=== PATIENT | male | born 1945 | race African-American/Black ===

== ENCOUNTER → 2018-12-11 | Day surgery (SDC) | payer MEDICARE, OTHER ==
[~2018-12-11] MED LIST: ALBUTEROL SULFATE 2.5 MG/3 ML NEBU. NEB PRN; ATROPINE 0.5 MG/5 ML DISP.SYRIN. IV PRN; ATROPINE SULFATE 1 MG VIAL ONE; BUSP10TA PO; DEXAMETHASONE SOD PHOS 10 MG/ML VIAL ONE; FLUO20CA8 PO; GLYCOPYRROLATE 1 MG/5 ML VIAL. ONE; IV RINGERS SOLUTION,LACTATED 1,000 ML IV SCH; LIDOCAINE 2% PF Vial for OR 5 ML VIAL. ONE; LOSA100T14 PO; NALOXONE 0.4 MG/ML VIAL. IV PRN; NEOSTIGMINE 10 MG/10 ML VIAL. ONE; OMEP20CA9 PO; ONDANSETRON PF 4 MG/2 ML VIAL. IV PRN; ONDANSETRON PF 4 MG/2 ML VIAL. ONE; PRAZ1CAP2 PO; PREG150C PO; PROCHLORPERAZINE 10 MG/2 ML VIAL. IV PRN; PROPOFOL 10,000 MCG/ML (20ML) VIAL IV ONE; PROPOFOL 20 ML IV ONE; ROCURONIUM 50 MG/5 ML VIAL. ONE; SUCCINYLCHOLINE 200 MG/10 ML VIAL. ONE; TAMS0.4C2 PO; ceFAZolin 2GM PREMIX 2 GM/50 ML BAG IV ONE; diphenhydrAMINE 50 MG/ML VIAL IV PRN; oxyCODONE/APAP 5/325 1 TAB TABLET PO PRN
--- NOTE | 2018-12-11 11:40 | PDOC4 ---
BRIEF OPERATIVE NOTE Brief Operative Note: Date: Dec 11, 2018 Pre-Op Diagnosis: Caries AMY Tobacco use HTN Post-Op Diagnosis: Caries AMY Tobacco use HTN Procedure: extraction of # 2, 4,6,7,8,9,10,11,12,15,17,18,29,31 Surgeon: jillian Global Ceo: del Anesthesiologist: hiram Blood Loss: 20 Urine Output: no [place] Specimans: teeth disposed of in OR Findings: see dictation Complications: none Operative Note: teeth extracted and 4 quad alveoloplasty KATIE DUNLAP DMD Dec 11, 2018 11:40
--- NOTE | 2018-12-11 12:13 | OP ---
DATE OF SURGERY: 12/11/2018 OPERATING SERVICE: payroll director. ATTENDING PHYSICIAN: Jonathan Dunlap DMD, MD. OPERATION PERFORMED: 1. Nonrestorable dentition, selected teeth #2, 4, 6, 7, 8, 9, 10, 11, 12, 15, 17, 18, 29 and 31. 2. Alveoloplasty would be required on the quadrants upper right, upper left, lower right, lower left. PREOPERATIVE DIAGNOSES: Caries, obstructive sleep apnea, prostate cancer with radiation treatment, tobacco use. POSTOPERATIVE DIAGNOSES: Caries, obstructive sleep apnea, prostate cancer with radiation treatment, tobacco use. BRIEF HISTORY: The patient is a 73-year-old male referred to our clinic for management of nonrestorable dentition, selected extractions considering his morbid conditions and obesity. Our plan was to remove these teeth in the OR setting at the surgery center for safety. The patient is affable with our plan. Permit was obtained for surgery. DRAINS PLACED: None. SPECIMEN SENT: None. BLOOD LOSS: Approximately 20 mL. COMPLICATIONS: None noted at the time of surgery. DESCRIPTION OF PROCEDURE: After the history and physical was updated in the preoperative holding area, the patient was transported by the Anesthesia Service to the operating suite, placed in the supine position. General anesthesia was induced. The patient was intubated with an oral NANETTE intubation without complication. The tube was secured in midline. After this, timeout was performed. The patient was positioned with pads in the appropriate pressure points. A moistened throat pack was placed and was confirmed. The local anesthesia in the form of 2% lidocaine with 1:100,000 epinephrine was administered approximately 8.5 mL. An additional 8.5 mL of 0.5% Marcaine with 1:200,000 epinephrine were administered into the proposed surgical areas. An additional at the culmination of the procedure, an additional 3.2 mL were administered of 0.5% Marcaine with 1:200,000 epinephrine in the surgical areas. Surgery began in the upper right and lower right quadrants with a #15 blade. Full thickness mucoperiosteal flaps were reflected buccally. The teeth were luxated, elevated and extracted without complication. Teeth on the upper left and lower left sides were treated in similar fashion with a #15 blade. Full thickness mucoperiosteal flaps reflected buccally. All teeth were luxated, elevated and extracted. Teeth that were extracted were teeth #2, 4, 6, 7, 8, 9, 10, 11, 12, 15, 17, 18, 29 and 31. Alveoloplasty was performed removing all bony undercuts and smoothing the bone with rongeurs, bone file, curettage. Copious normal sterile saline was used to irrigate all 4 quadrants. Alveoloplasty was performed in all 4 quadrants. The sites were then closed with 3-0 chromic sutures in a running locked fashion in all 4 quadrants. Gelfoam was placed at all sites. The periapical tissue was removed with surgical curettes prior to this. Oral cavity was lavaged and suctioned. The moistened throat pack was removed. An OG was passed and stomach was decompressed. The patient was returned to the care of Anesthesia where he was awakened and extubated without complication and transported to the PACU in stable condition. JONATHAN DUNLAP DMD DR: Rosa JOB#: [id number] / [id number]
[2018-12-11 12:30] VITALS: BP 121/67
== END | disposition home or self-care (01) ==
LOC: SURG 07:16
PROVIDERS: ATTEND Dentist Oral and Maxillofacial Surgery
DX: K00.7 Teething syndrome (principal); K02.9 Dental caries, unspecified; G47.33 Obstructive sleep apnea (adult) (pediatric); Z85.46 Personal history of malignant neoplasm of prostate; I10 Essential (primary) hypertension; F41.9 Anxiety disorder, unspecified; F43.10 Post-traumatic stress disorder, unspecified; K21.9 Gastro-esophageal reflux disease without esophagitis; Z79.899 Other long term (current) drug therapy; Z87.891 Personal history of nicotine dependence; E66.01 Morbid (severe) obesity due to excess calories; Z68.39 Body mass index [BMI] 39.0-39.9, adult
CPT/HCPCS: 41874; 41899; J0330; J0461; J0696; J1100; J2405; J2704; J2710; J3010; J3490; J7120; J2001